=== PATIENT | female | born 1970 | race Caucasian/White ===

== ENCOUNTER → 2016-10-10 | Outpatient (CLI) | payer BC ==
[~2016-10-10] MED LIST: Iopamidol 755 MG/ML 500 ML Multipack Bottle IVPUSH STA
--- NOTE | 2016-10-10 12:42 | CT ---
CT of the abdomen and pelvis with and without contrast. HISTORY: Pain TECHNIQUE: Axial CT images were obtained of the abdomen and pelvis without and following the adminis tration of 100 mL of Isovue-370 left antecubital fossa. Coronal and sagittal reconstructions obtaine d. FINDINGS: The lung bases are clear, no pleural effusion. Breast implant noted. The liver, spleen, adrenal glands, and pancreas appear unremarkable for noncontrast examination. The gallbladder appears normal. There is no bulky retroperitoneal lymphadenopathy. No abdominal ascite s. There are no calcifications noted within the kidneys or along the courses of the ureters bilaterally . The large and small bowel are normal in caliber without evidence of obstruction. The appendix appear s normal. There is no bulky pelvic lymphadenopathy. No free fluid. No free air. The urinary bladder appears normal. The uterus and ovaries appear normal. The visualized osseous structures appear normal. IMPRESSION: No acute findings within the abdomen or pelvis.
== END ==
LOC: MW.DI 10:11
PROVIDERS: ATTEND Family Medicine
DX: R10.32 Left lower quadrant pain (principal); R93.5 Abnormal findings on diagnostic imaging of other abdominal regions, including retroperitoneum
CPT/HCPCS: 74178; Q9967

== ENCOUNTER 2017-10-12 06:27 | Day surgery (SDC) | payer BC ==
[~2017-10-12 06:27] MED LIST changes: -Iopamidol 755 MG/ML 500 ML Multipack Bottle IVPUSH STA; +Lactated Ringers 1,000 ML IV SCH; +Sodium Chloride 0.9% 10 ML Syringe FLUSH PRN; +Sodium Chloride 0.9% 2.5 ML Syringe FLUSH PRN
--- NOTE | 2017-10-12 07:19 | PCM.PREANE ---
Preanesthetic Assessment - Anesthesia/Transfusion/Family Hx Anesthesia History: Prior Anesthesia Without Reaction Family History of Anesthesia Reaction: No Transfusion History: No Prior Transfusion(s) Intubation History: Unknown - Review of Systems General: No Symptoms Pulmonary: No Symptoms Cardiovascular: No Symptoms Gastrointestinal: Abdominal Pain Neurological: No Symptoms Other: Reports: None - Physical Assessment NPO Status Date: 10/11/17 NPO Status Time: 22:00 O2 Sat by Pulse Oximetry: 95 Respiratory Rate: 16 Vital Signs: Last Vital Signs Temp 37.0 C 10/12/17 06:43 Pulse 73 10/12/17 06:43 Resp 16 10/12/17 06:43 BP 117/79 10/12/17 06:43 Pulse Ox 95 10/12/17 06:43 Height: 1.65 m Weight: 53.524 kg ASA Class: 2 Mental Status: Alert & Oriented x3 Dentition: Reports: Normal Dentition Thyro-Mental Finger Breadths: 3 Mouth Opening Finger Breadths: 3 ROM/Head Extension: Full Lungs: Clear to Auscultation, Normal Respiratory Effort Cardiovascular: Regular Rate, Regular Rhythm - Lab Values: Laboratory Last Values HCG, Qual NEGATIVE (NEG) 10/12/17 06:49 - Allergies Allergies/Adverse Reactions: Allergies Allergy/AdvReac Type Severity Reaction Status Date / Time No Known Allergies Allergy Verified 10/08/17 08:33 - Blood Blood Available: No - Anesthesia Plan Pre-Op Medication Ordered: None - Acknowledgements Anesthesia Type Planned: General Anesthesia Pt an Appropriate Candidate for the Planned Anesthesia: Yes Alternatives and Risks of Anesthesia Discussed w Pt/Guardian: Yes Pt/Guardian Understands and Agrees with Anesthesia Plan: Yes PreAnesthesia Questionnaire Genitourinary History: Reports: None Musculoskeletal History: Reports: Arthritis (knees, back), Back Pain, Chronic Oncologic (Cancer) History: Reports: Breast - Past Surgical History Head Surgeries/Procedures: Reports: None Female Surgical History: Reports: Breast Implant, Breast Reconstruction, Cervical Cryotherapy, Mastectomy Other Female Surgeries/Procedures: hx double mastectomy, breast augmentation prior to mastectomy, breast reconstruction following mastectomy - SUBSTANCE USE Smoking Status *Q: Current Every Day Smoker (1- 07/14) Tobacco Use Within Last Twelve Months: Cigarettes Recreational Drug Use History: No - HOME MEDS Home Medications: Home Meds Amitriptyline [Elavil] 25 mg PO BEDTIME 10/08/17 [History] Bone & Joint 1 tab PO DAILY 10/08/17 [History] Cetirizine HCl [Zyrtec] 10 mg PO DAILY 10/08/17 [History] Diclofenac Sodium [Voltaren] 1 tab PO ASDIRECTED PRN 10/08/17 [History] L.acidoph,Paracasei, B.lactis [Probiotic] 1 tab PO DAILY 10/08/17 [History] Meloxicam 15 mg PO DAILY 10/08/17 [History] Polyethylene Glycol 3350 [Miralax] 1 dose PO ASDIRECTED PRN 10/08/17 [History] Tamoxifen [Nolvadex] 20 mg PO DAILY 10/08/17 [History] medroxyPROGESTERone Acetate [Depo-Provera] 1 injection IM ASDIRECTED 10/08/17 [ History] - CURRENT (IN HOUSE) MEDS Current Meds: Current Medications Lactated Ringer's (Ringers, Lactated) 1,000 mls @ 125 mls/hr IV ASDIRECTED RICHIE Last Admin: 10/12/17 06:52 Dose: 125 mls/hr Sodium Chloride (Saline Flush) 10 ml FLUSH ASDIRECTED PRN PRN Reason: Keep Vein Open Sodium Chloride (Saline Flush) 2.5 ml FLUSH ASDIRECTED PRN PRN Reason: Keep Vein Open
[2017-10-12] MEDS ORDERED: Bupivacaine 0.25% 10 ML SDV ONE (07:20)
[2017-10-12] MEDS ORDERED: diphenhydrAMINE 50 MG/ML SDV ONE (07:24)
[2017-10-12] MEDS ORDERED: Dexamethasone 4 MG/ML 5 ML MDV ONE (07:24)
[2017-10-12] MEDS ORDERED: Ondansetron 4 MG/2 ML SDV ONE (07:24)
[2017-10-12] MEDS ORDERED: Lidocaine 2% 5 ML SDV ONE (07:24)
[2017-10-12] MEDS ORDERED: Rocuronium 10 MG/ML 10 ML Syringe ONE (07:24)
[2017-10-12] MEDS ORDERED: Midazolam 1 MG/ML 2 ML SDV ONE (07:25)
[2017-10-12] MEDS ORDERED: fentaNYL 250 MCG/5 ML SDV ONE (07:25)
[2017-10-12] MEDS ORDERED: Propofol 200 MG/20 ML SDV ONE (07:25)
[2017-10-12] MEDS ORDERED: Neostigmine Methylsulfate 1 MG/ML 5 ML Syringe ONE (08:30)
[2017-10-12] MEDS ORDERED: Glycopyrrolate 0.2 MG/ML SDV ONE (08:30)
--- NOTE | 2017-10-12 09:23 | PCM.POSTAN ---
POST ANESTHESIA ASSESSMENT - MENTAL STATUS Mental Status: Alert, Oriented - RESPIRATORY Respiratory Status: Respiratory Rate WNL, Airway Patent, O2 Saturation Stable - CARDIOVASCULAR CV Status: Pulse Rate WNL, Blood Pressure Stable - GASTROINTESTINAL GI Status: No Symptoms - PAIN Pain Score: 5 - POST OP HYDRATION Hydration Status: Adequate & Stable - OBSERVATIONS Free Text/Narrative:: no anesthesia problems
--- NOTE | 2017-10-12 09:25 | PCM.OPNOTE ---
- General Post-Op/Procedure Note Date of Surgery/Procedure: 10/12/17 Operative Procedure(s): Operative laparoscopy with bilateral ovarian biopsies, peritoneal biopsy, pelvic washings Findings: Normal appearing pelvis Pre Op Diagnosis: Left lower quadrant pelvic pain. Personal history of breast malignancy Post-Op Diagnosis: Same Anesthesia Technique: General LMA Primary Surgeon: Sara Gavin Pathology: bilateral ovarian biopsies left uterosacral peritoneal biopsy pelvic washings Fluid Replacement, Intraop: 1,000 EBL in mLs: 10 Complications: None known Condition: Good Free Text/Narrative:: Dictation [id number]
[2017-10-12 10:45] VITALS: BP 93/65
--- NOTE | 2017-10-12 10:46 | PCM48HPAN ---
Post Anesthesia Note - EVALUATION WITHIN 48HRS OF ANESTHETIC Vital Signs in Normal Range: Yes Patient Participated in Evaluation: Yes Respiratory Function Stable: Yes Airway Patent: Yes Cardiovascular Function Stable: Yes Hydration Status Stable: Yes Pain Control Satisfactory: Yes Nausea and Vomiting Control Satisfactory: Yes Mental Status Recovered: Yes Resp Rate: 15 - COMMENTS/OBSERVATIONS Free Text/Narrative:: no anesthesia problems
--- NOTE | 2017-10-12 16:23 | OR ---
SURGEON: Sara Gavin M.D. DATE OF PROCEDURE: 10/12/2017 PREOPERATIVE DIAGNOSES: 1. Left lower quadrant pelvic pain. 2. Personal history of breast cancer. POSTOPERATIVE DIAGNOSES: 1. Left lower quadrant pelvic pain. 2. Personal history of breast cancer. PROCEDURE: Operative laparoscopy with bilateral ovarian biopsies, peritoneal biopsy, and pelvic washings. ANESTHESIA: General LMA. FLUIDS: 1000 mL crystalloid. ESTIMATED BLOOD LOSS: Less than 10 mL. COMPLICATIONS: None. FINDINGS: Normal-appearing pelvis overall. Bilateral ovarian biopsies performed. Left uterosacral peritoneal biopsy, pelvic washings. DISPOSITION: The patient to PACU, stable. Specimens to pathology. PROCEDURE IN DETAIL: Hillary is a 47-year-old, perimenopausal female, who has had an acute onset left lower quadrant pelvic pain since July 2012. Imaging studies have been normal, but she continues to have pain. There is also some concern with her personal history of breast malignancy that there is something more going on. Despite efforts using warm heat, NSAIDs in time the pain is not improving. Therefore, we have discussed proceeding with laparoscopy to further evaluate the pelvis. The patient would like to proceed in this direction. Proper consent obtained. The patient was taken to the operating room, where she underwent general LMA in dorsal supine position, was placed in modified dorsal supine position. Prepped and draped in usual sterile fashion. SCDs to lower extremities. A time-out was performed. Speculum was introduced in the vagina. Uterine [place] manipulator gently placed. Speculum removed. Gloves were changed. Attention turned abdominally. Infraumbilically region was prepped with 0.25% Marcaine. Please see nurse's notes for total amount of local dispensed during the procedure. A 5-mm infraumbilical midline vaginal skin incision was created, anterior abdominal wall tented upward. A Veress needle gently introduced, saline hanging drop test was performed. Pneumoperitoneum was achieved. The Veress needle removed and 5-mm trocar introduced and laparoscope introduced. Peritoneal contents were identified. The uterus was mobile. The patient was placed in Trendelenburg positioning. Left lower quadrant trocar was placed under direct visualization after prepping the region with 0.25% Marcaine and creating a 5-mm skin incision. A right lower quadrant trocar was also placed after prepping the region with 0.25% Marcaine and creating 5 mm skin incision. The bilateral fallopian tubes, ovaries are visualized, appeared normal. The uterus easily mobile and no evidence of endometriosis or adhesive disease noted. Thorough pelvic washings were performed with normal saline, will be sent to Pathology for further analysis. Closely inspected peritoneal surfaces. No evidence of endometriosis. There was an acute inflammatory region over the left uterosacral ligament, feels as more normal variant but biopsy was performed of this peritoneum. The left ovary followed by the right ovary are biopsied and specimen sent to Pathology for analysis. The liver edge was inspected as well as the appendix appeared normal. Photographs were taken. The pelvis copiously irrigated, suction dried. The pneumoperitoneum was released. The left lower quadrant trocars removed under direct visualization followed by right lower quadrant trocar being removed. The laparoscope was removed followed by the infraumbilical trocar after releasing as much of the pneumoperitoneum as possible. The skin edges were reapproximated using 4-0 Monocryl in subcuticular fashion. Sponge, needle, and instrument count was correct. The attention was now turned vaginally. The [place] uterine manipulator gently removed, speculum was introduced. Cervix was inspected and found to be hemostatic. Sponge, instrument, needle count was correct x2 again. The patient has tolerated the procedure well overall. She will go to PACU in stable condition. Specimens to pathology. ADDISON / ALEXANDER /[id number]
== END 2017-10-12 10:40 | disposition home or self-care (01) ==
LOC: MW.SDS 06:27
PROVIDERS: ATTEND Obstetrics & Gynecology
DX: N83.8 Other noninflammatory disorders of ovary, fallopian tube and broad ligament (principal); I10 Essential (primary) hypertension; Z79.899 Other long term (current) drug therapy; F17.210 Nicotine dependence, cigarettes, uncomplicated
CPT/HCPCS: 49321; 84703; 85027; J1100; J1200; J2250; J2405; J3010; J7120; 00840; 88305; J2704

== ENCOUNTER 2018-12-23 10:41 | Day surgery (SDC) | payer BC ==
[~2018-12-23 10:41] MED LIST changes: +Betamethasone Acetate/Betamethasone Sod Phosphate 30 MG/5 ML MDV ONE; +Iopamidol 200-M 10 ML vial ITHECAL ONE; -Lactated Ringers 1,000 ML IV SCH; +Lidocaine 2% 5 ML SDV ONE; +Ropivacaine 0.5% 5 MG/ML 30 ML SDV ONE; -Sodium Chloride 0.9% 10 ML Syringe FLUSH PRN; -Sodium Chloride 0.9% 2.5 ML Syringe FLUSH PRN
--- NOTE | 2018-12-23 20:12 | OR ---
SURGEON: Justina Lawson D.O. DATE OF PROCEDURE: 12/23/2018 PRIMARY SURGEON: Justina Lawson D.O. OPERATING ROOM STAFF PRESENT: 1. Ines Bejarano. 2. Daniel Gutierrez. 3. RT. Caroline WOUND CLASS: I. PREOPERATIVE DIAGNOSES: 1. Failed back surgery syndrome. 2. Lumbar radiculopathy. 3. Lumbard degenerative joint disease. POSTOPERATIVE DIAGNOSES: 1. Failed back surgery syndrome. 2. Lumbar radiculopathy. 3. Lumbard degenerative joint disease. PROCEDURE PERFORMED: 1. Caudal epidural steroid injection. 2. Fluoroscopic guidance for needle placement. 3. Local with oral Valium for sedation. SCREENING QUESTIONS: The patient answered "no" to all of the following questions: 1. Are you allergic to latex? 2. Do you have a bleeding disorder? 3. Do you have any current local or systemic infections? 4. Are you taking any anti-inflammatories or blood thinners? 5. Do you have any joint replacements, heart valve replacements, or a pacemaker? DESCRIPTION OF PROCEDURE: The patient had the procedure thoroughly explained including all possible risks, benefits and alternatives. Consent was signed in my clinic indicating understanding and willingness to proceed. The patient presented to [facility] and was escorted to the dressing room to disrobe and change into a hospital gown. Preoperative vital signs were taken and stable. The patient reported that Valium was taken prior to the procedure. The patient was brought back to the procedure room and placed in the prone position on the procedure room table. A pillow was placed under the hips in order to flatten the lumbar lordosis. The back was prepped with ChloraPrep and sterilely draped. All personnel in the operating room were dressed in appropriate attire including surgical scrubs, head and shoe covers. This was to ensure sterility while in the treatment room. During the time fluoroscopy was in use, all personnel in the operating room wore lead reddy with thyroid collars. Sterile technique was used throughout the procedure. The patient was awake and conversant throughout the procedure. There was no evidence of infection at the site of needle insertion. Skeletal landmarks were identified under fluoroscopy for the lumbar epidural. Skin was anesthetized with 2% lidocaine with a sterile 27-gauge 1.5 inch needle. Then a 20-gauge Tuohy epidural needle was placed in the epidural space with loss of resistance technique under fluoroscopic guidance. No heme, cerebrospinal fluid, or paresthesias were noted. Isovue-200 contrast dye was injected in 0.2 cubic centimeter increments and seen to outline the epidural space in both AP and lateral views. There was no intravascular flow pattern observed under live fluoroscopy. Then 12 milligrams of Celestone was slowly injected after negative aspiration. The patient tolerated the procedure well. Vital signs were stable during and after the procedure. The staff escorted the patient to the recovery area and the patient was released in stable condition after a brief stay in the recovery room monitored by the nurse. The patient was given both oral and written discharge and follow up instructions with recommendation to follow up given for 2-3 weeks. The patient voiced understanding including understanding of those signs and symptoms that would require emergency care. The patient knows how to contact the office if there are any additional problems or questions in the meantime. PREOPERATIVE PAIN: 8/10. POSTOPERATIVE PAIN: 0/10. FOLLOWUP: In the Pain Clinic in 3 weeks. KAITLYNN / ALEXANDER /[id number]
== END 2018-12-23 13:03 | disposition home or self-care (01) ==
LOC: MW.SDS 10:41
PROVIDERS: ATTEND Anesthesiology
DX: M96.1 Postlaminectomy syndrome, not elsewhere classified (principal); M47.26 Other spondylosis with radiculopathy, lumbar region; M79.18 Myalgia, other site; M17.11 Unilateral primary osteoarthritis, right knee; I10 Essential (primary) hypertension; F17.210 Nicotine dependence, cigarettes, uncomplicated; Z85.3 Personal history of malignant neoplasm of breast; Z98.890 Other specified postprocedural states
CPT/HCPCS: 62323; J0702; J2795; Q9966; J2001

== ENCOUNTER 2019-06-20 16:03 | Emergency (ER) | payer BC ==
[2019-06-20 16:36] VITALS: BP 145/97; PULSE 108
[2019-06-20] MEDS ORDERED: Ketorolac 60 MG/2 ML SDV IM ONE (17:01)
--- NOTE | 2019-06-20 17:10 | EDM.PDOC ---
ED HPI GENERAL MEDICAL PROBLEM - General Chief Complaint: Back Pain or Injury Stated Complaint: RIGHT LEG PAIN Time Seen by Provider: 06/20/19 16:16 Source of Information: Reports: Patient History Limitations: Reports: No Limitations - History of Present Illness INITIAL COMMENTS - FREE TEXT/NARRATIVE: HISTORY AND PHYSICAL: History of present illness: Patient is a 49-year-old female who presents to the ED today with concern of right leg pain that has been going on over the past several months. Patient states she has seen a community living specialist, orthopedic provider, and primary care provider. Patient states that she has had multiple imaging modalities over the past several months including the MRI, thoracic spine MRI, extremity ultrasound (on our file) and states she also had a pelvic MRI and recent steroid injections for bursitis of the right hip at [facility] with Dr. Shafer. Patient states she also has scheduled out a few more steroid injections over the next week to [address] [facility] for her leg pain. Patient states she will also have a right knee surgery coming up in the next several weeks with an orthopedic provider for meniscus injuries. Patient denies any new trauma , fall, or injury to the leg. Patient denies any other symptoms or concerns. Patient denies loss or retention of bowel and bladder function or saddle anesthesia. Patient denies fever, chills, chest pain, shortness of breath, or cough. Denies headache, neck stiff ness, change in vision, syncope, or near syncope. Denies nausea, vomiting, abdominal pain, diarrhea, constipation, or dysuria. Has not noted any blood in urine or stool. Patient has been eating and drinking appropriately. Review of systems: As per history of present illness and below otherwise all systems reviewed and negative. Past medical history: As per history of present illness and as reviewed below otherwise noncontributory. Surgical history: As per history of present illness and as reviewed below otherwise noncontributory. Social history: See social history for further information Family history: As per history of present illness and as reviewed below otherwise noncontributory. Physical exam: General: Patient is alert, oriented, and in no acute distress. Patient laying on exam table but tearful throughout exam. HEENT: Atraumatic, normocephalic, pupils equal and reactive bilaterally, negative for conjunctival pallor or scleral icterus, mucous membranes moist, TMs normal bilaterally, throat clear, neck supple, nontender, trachea midline. No drooling or trismus noted. No meningeal signs. No hot potato voice noted. Lungs: Clear to auscultation, breath sounds equal bilaterally, chest nontender. Heart: S1S2, regular rate and rhythm without overt murmur Abdomen: Soft, nondistended, nontender. Negative for masses or hepatosplenomegaly. Negative for costovertebral tenderness. Pelvis: Stable nontender. Genitourinary: Deferred. Rectal: Deferred. Skin: Intact, warm, dry. No lesions or rashes noted. Extremities: Atraumatic, negative for cords or calf pain. Neurovascular unremarkable. No obvious deformity of complete bilateral lower extremities. Negative pain to palpation of complete bilateral lower extremities. Patient does have full range of motion of complete bilateral lower extremities. Dorsalis pedis and posterior tibial pulses are grossly intact bilaterally with capillary refill less than 2 seconds. Patient does point to her posterior mid femur area when relation to her discomfort but negative pain with palpation of this area and no obvious deformity, mass, or lesions noted of this area. Neuro: Awake, alert, oriented. Cranial nerves II through XII unremarkable. Cerebellum unremarkable. Motor and sensory unremarkable throughout. Exam nonfocal. Notes: Dr. Painter verbally involved in patient care. Discussed the importance for follow-up with her primary care provider and orthopedic provider as she has scheduled. Voices understanding and is agreeable to plan of care. Denies any further questions or concerns at this time. Diagnostics: Femur XR Therapeutics: Toradol, Norflex Prescription: None Impression: Right leg pain, chronic Plan: 1. Rest, ice, elevate the affected extremity. You can apply ice and or heat 15 minutes on, 15 minutes off. 2. Tylenol and/or Ibuprofen as directed for pain management or discomfort. 3. Follow up with the Orthopedic provider and primary care provider as scheduled and as discussed. Return to the ED as needed and as discussed. Definitive disposition and diagnosis as appropriate pending reevaluation and review of above. Right Leg Pain Score (Numeric/FACES): 10 - Related Data Allergies Allergy/AdvReac Type Severity Reaction Status Date / Time No Known Allergies Allergy Verified 06/20/19 16:36 Home Meds: Home Meds Bone & Joint 1 tab PO DAILY 10/08/17 [History] Polyethylene Glycol 3350 [Miralax] 1 dose PO ASDIRECTED PRN 10/08/17 [History] Tamoxifen [Nolvadex] 20 mg PO DAILY 10/08/17 [History] medroxyPROGESTERone Acetate [Depo-Provera] 1 injection IM ASDIRECTED 10/08/17 [ History] Pregabalin 150 mg PO DAILY 06/20/19 [History] oxyCODONE HCl/Acetaminophen [Endocet 7.5-325 mg Tablet] 1 each PO BID 06/20/19 [ History] tiZANidine [Zanaflex] 4 mg PO BID 06/20/19 [History] Past Medical History HEENT History: Reports: None Cardiovascular History: Reports: None Respiratory History: Reports: None Gastrointestinal History: Reports: None Genitourinary History: Reports: None APPLICATION DEVELOPMENT LIAISON History: Reports: None Musculoskeletal History: Reports: Arthritis, Back Pain, Chronic, Other (See Below) Other Musculoskeletal History: Chronic R Leg pain Neurological History: Reports: None Psychiatric History: Reports: None Endocrine/Metabolic History: Reports: None Hematologic History: Reports: None Immunologic History: Reports: None Oncologic (Cancer) History: Reports: Breast Dermatologic History: Reports: None - Infectious Disease History Infectious Disease History: Reports: Chicken Pox - Past Surgical History Head Surgeries/Procedures: Reports: None Female Surgical History: Reports: Breast Implant, Breast Reconstruction, Cervical Cryotherapy, Mastectomy Other Female Surgeries/Procedures: hx double mastectomy, breast augmentation prior to mastectomy, breast reconstruction following mastectomy Oncologic Surgical History: Reports: Biopsy of Breast, Mastectomy Social & Family History - Tobacco Use Smoking Status *Q: Former Smoker Used Tobacco, but Quit: Yes Month/Year Tobacco Last Used: 2017 - Recreational Drug Use Recreational Drug Use: No ED ROS GENERAL - Review of Systems Review Of Systems: Comprehensive ROS is negative, except as noted in HPI. ED EXAM, GENERAL - Physical Exam Exam: See Below (see dictation) Course - Vital Signs Last Recorded V/S: Last Vital Signs Temp 97.9 F 06/20/19 16:33 Pulse 108 H 06/20/19 16:33 Resp 22 H 06/20/19 16:33 BP 145/97 H 06/20/19 16:33 Pulse Ox 95 06/20/19 16:33 - Orders/Labs/Meds Meds: Medications Discontinued Medications Generic Name Dose Route Start Last Admin Trade Name Freq PRN Reason Stop Dose Admin Ketorolac Tromethamine 60 mg 06/20/19 17:01 06/20/19 17:18 Toradol IM 06/20/19 17:02 60 mg ONETIME ONE Administration Orphenadrine Citrate 60 mg 06/20/19 17:01 06/20/19 17:18 Norflex IM 06/20/19 17:02 60 mg ONETIME ONE Administration Departure - Departure Time of Disposition: 18:11 Disposition: Home, Self-Care 01 Clinical Impression: Right leg pain - Discharge Information Instructions: Pain Without a Known Cause Referrals: Swapnil Joe MD [Primary Care Provider] - Forms: ED Department Discharge Additional Instructions: The following information is given to patients seen in the emergency department who are being discharged to home. This information is to outline your options for follow-up care. We provide all patients seen in our emergency department with a follow-up referral. The need for follow-up, as well as the timing and circumstances, are variable depending upon the specifics of your emergency department visit. If you don't have a primary care physician on staff, we will provide you with a referral. We always advise you to contact your personal physician following an emergency department visit to inform them of the circumstance of the visit and for follow-up with them and/or the need for any referrals to a consulting specialist. The emergency department will also refer you to a specialist when appropriate. This referral assures that you have the opportunity for follow-up care with a specialist. All of these measure are taken in an effort to provide you with optimal care, which includes your follow-up. Under all circumstances we always encourage you to contact your private physician who remains a resource for coordinating your care. When calling for follow-up care, please make the office aware that this follow-up is from your recent emergency room visit. If for any reason you are refused follow-up, please contact the [facility] at and asked to speak to the emergency department charge nurse. [facility] [address] [place] [id number] [id number] [facility] [address], [address] [place] [address] 1. Rest, ice, elevate the affected extremity. You can apply ice and or heat 15 minutes on, 15 minutes off. 2. Tylenol and/or Ibuprofen as directed for pain management or discomfort. 3. Follow up with the Orthopedic provider and primary care provider as scheduled and as discussed. Return to the ED as needed and as discussed.
--- NOTE | 2019-06-20 18:10 | CR ---
Indication: Pain. Technique: Two views of right femur. Comparison: None Findings: The femoral head is seated within the acetabulum. No fracture or subluxation is identified. Postoperative changes of the lower lumbar spine are identified. Impression: No acute fracture. Dictated by Erinn Gonzalez MD @ Jun 20 2019 6:07PM Signed by Dr. Erinn Gonzalez @ Jun 20 2019 6:08PM
== END 2019-06-20 18:22 | disposition home or self-care (01) ==
LOC: MW.ED 16:03
DX: M79.661 Pain in right lower leg (principal); G89.29 Other chronic pain; Z87.890 Personal history of sex reassignment
CPT/HCPCS: 73552; 96372; 99283; J1885; J2360

== ENCOUNTER 2024-04-13 12:38 | Emergency (ER) | payer MEDICARE, BC ==
[2024-04-13 12:56] LABS: HEMATOCRIT 38.8 % (37.0-47.0); HEMOGLOBIN 13.5 g/dL (12.0-16.0); MEAN CORPUSCULAR HEMOGLOBIN 30.3 pg (28.0-32.0); MEAN CORPUSCULAR HGB CONC 34.8 g/dL (32.0-36.0); MEAN CORPUSCULAR VOLUME 87.2 fL (83.0-99.0); MEAN PLATELET VOLUME 9.3 fL (9.4-12.3); PLATELET COUNT,PLT 377 K/uL (150-400); RED BLOOD CELL COUNT 4.45 M/uL (4.10-5.30); WHITE BLOOD CELL COUNT,WBC 18.33 K/uL (3.9-11.3)
[2024-04-13] MEDS: Famotidine 20 MG/2 ML SDV IVPUSH ONE (13:09)
[2024-04-13] MEDS: Morphine 4 MG/ML Syringe IVPUSH ONE ×2 (13:09→14:31)
[2024-04-13] MEDS: Sodium Chloride 0.9% 1,000 ML IV ONE ×3 (13:09→16:29)
[2024-04-13] MEDS: Ondansetron 4 MG/2 ML SDV IVPUSH ONE (13:09)
[2024-04-13 13:28] LABS: SEG NEUTROPHILS ABSOLUTE MAN 15.03 K/uL (1.80-7.70); SEG NEUTROPHILS PERCENT MAN 82 % (41-71)
[2024-04-13 13:29] LABS: BAND PERCENT MAN 6 %; LYMPHOCYTES ABSOLUTE MAN 1.47 K/uL (1.00-4.80); LYMPHOCYTES PERCENT MAN 8 % (24-44); MONOCYTES ABSOLUTE MAN 0.73 K/uL (0.00-0.80); MONOCYTES PERCENT MAN 4 % (0-8)
[2024-04-13 13:40] LABS: A/G RATIO 1.7 (0.9-1.6); ALANINE AMINOTRANSFERASE,ALT 81 IU/L (14-63); ALBUMIN 5.7 g/dL (3.4-5.0); ALKALINE PHOSPHATASE 61 U/L (46-116); ASPARTATE AMNIOTRANSFERASE,AST 62 IU/L (15-37); BILIRUBIN TOTAL 0.9 mg/dL (0.2-1.0); BLOOD UREA NITROGEN,BUN 25 mg/dL (7.0-18.0); CALCIUM 11.6 mg/dL (8.5-10.1); CARBON DIOXIDE,CO2 20.2 mmol/L (21.0-32.0); CHLORIDE,CL 89 mmol/L (98-107); CREATININE 1.7 mg/dL (0.6-1.0); GLUCOSE RANDOM 194 mg/dL (74-106); LIPASE 23 U/L (16-77); POTASSIUM,K 4.3 mmol/L (3.5-5.1); PROTEIN TOTAL,TP 9.1 g/dL (6.4-8.2); SODIUM,NA 130 mmol/L (136-145)
[2024-04-13 13:46] LABS: ESTIMATED GFR 36 mL/min (>60)
[2024-04-13] MEDS: droPERidol 5 MG/2 ML SDV IVPUSH ONE (14:31)
[2024-04-13 17:48] VITALS: BP 111/67; PULSE 85
== END 2024-04-13 17:47 | disposition home or self-care (01) ==
LOC: MW.ED 12:38
DX: R10.13 Epigastric pain (principal); Z79.899 Other long term (current) drug therapy; Z75.8 Other problems related to medical facilities and other health care
CPT/HCPCS: 36415; 74176; 80053; 83690; 84703; 85025; 96361; 96374; 96375; 96376; 99284; J1790; J2270; J2405; J3490; J7030

== ENCOUNTER 2024-04-16 07:10 | Observation (INO) | payer MEDICARE, BC ==
[2024-04-16] MEDS: Sodium Chloride 0.9% 10 ML Syringe FLUSH PRN (07:23)
[2024-04-16] MEDS: Sodium Chloride 0.9% 2.5 ML Syringe FLUSH PRN (07:23)
[2024-04-16] MEDS: Morphine 4 MG/ML Syringe IVPUSH ONE (07:25)
[2024-04-16] MEDS: Famotidine 20 MG/2 ML SDV IVPUSH ONE (07:25)
[2024-04-16] MEDS: droPERidol 5 MG/2 ML SDV IVPUSH ONE ×2 (07:25→08:02)
[2024-04-16] MEDS: Sodium Chloride 0.9% 1,000 ML IV ONE (07:26)
[2024-04-16 07:30] LABS: BASOPHILS ABSOLUTE AUTO 0.03 K/uL (0.00-0.20); BASOPHILS PERCENT AUTO 0.4 % (0.0-1.0); EOSINOPHILS ABSOLUTE AUTO 0.19 K/uL (0.00-0.45); EOSINOPHILS PERCENT AUTO 2.4 % (0.0-6.0); HEMATOCRIT 34.3 % (37.0-47.0); HEMOGLOBIN 11.5 g/dL (12.0-16.0); IMMATURE GRAN ABSOLUTE AUTO 0.01 K/uL (0.00-0.05); IMMATURE GRAN PERCENT AUTO 0.1 % (0.0-0.4); LYMPHOCYTES ABSOLUTE AUTO 2.22 K/uL (1.00-4.80); LYMPHOCYTES PERCENT AUTO 27.9 % (24.0-44.0); MEAN CORPUSCULAR HEMOGLOBIN 30.3 pg (28.0-32.0); MEAN CORPUSCULAR HGB CONC 33.5 g/dL (32.0-36.0); MEAN CORPUSCULAR VOLUME 90.5 fL (83.0-99.0); MEAN PLATELET VOLUME 9.4 fL (9.4-12.3); MONOCYTES PERCENT AUTO 12.6 % (0.0-8.0); NEUTROPHILS PERCENT AUTO 56.6 % (41.0-71.0); PLATELET COUNT,PLT 279 K/uL (150-400); RED BLOOD CELL COUNT 3.79 M/uL (4.10-5.30); WHITE BLOOD CELL COUNT,WBC 7.95 K/uL (3.9-11.3)
[2024-04-16 07:52] LABS: A/G RATIO 1.4 (0.9-1.6); ALANINE AMINOTRANSFERASE,ALT 48 IU/L (14-63); ALBUMIN 4.1 g/dL (3.4-5.0); ALKALINE PHOSPHATASE 45 U/L (46-116); ASPARTATE AMNIOTRANSFERASE,AST 36 IU/L (15-37); BILIRUBIN TOTAL 0.5 mg/dL (0.2-1.0); BLOOD UREA NITROGEN,BUN 15 mg/dL (7.0-18.0); CALCIUM 9.6 mg/dL (8.5-10.1); CARBON DIOXIDE,CO2 25.6 mmol/L (21.0-32.0); CHLORIDE,CL 95 mmol/L (98-107); GLUCOSE RANDOM 110 mg/dL (74-106); LIPASE 34 U/L (16-77); MAGNESIUM 1.5 mg/dL (1.8-2.4); POTASSIUM,K 3.2 mmol/L (3.5-5.1); PROTEIN TOTAL,TP 7.1 g/dL (6.4-8.2); SODIUM,NA 133 mmol/L (136-145)
[2024-04-16 08:00] LABS: ESTIMATED GFR 67 mL/min (>60); ETHANOL BLOOD MEDICAL < 3.0 mg/dL
[2024-04-16] MEDS: Ondansetron 4 MG/2 ML SDV IVPUSH ONE (08:02)
[2024-04-16 08:04] LABS: APPEARANCE,URINE CLEAR; BILIRUBIN,URINE NEGATIVE (NEGATIVE); COLOR,URINE YELLOW; GLUCOSE,URINE NEGATIVE (NEGATIVE); KETONES,URINE 15 mg/dL (NEGATIVE); LEUKOCYTE ESTERASE,URINE NEGATIVE (NEGATIVE); NITRITE,URINE NEGATIVE (NEGATIVE); OCCULT BLOOD,URINE NEGATIVE (NEGATIVE); PROTEIN,URINE NEGATIVE (NEGATIVE); UROBILINOGEN,URINE 0.2 EU/dL (<2.0)
[2024-04-16 08:14] LABS: AMPHETAMINES SCREEN, URINE NEGATIVE (CUTOFF=500); BARBITURATE SCREEN,URINE NEGATIVE (CUTOFF=200); BENZODIAZEPINES SCREEN,URINE NEGATIVE (CUTOFF=150); BUPRENORPHINE SCREEN,URINE NEGATIVE (CUTOFF=10); METHADONE SCREEN, URINE NEGATIVE (CUTOFF=200); METHAMPHETAMINES SCREEN, URINE NEGATIVE (CUTOFF=500); OXYCODONE SCREEN,URINE NEGATIVE (CUT0FF=100); PCP SCREEN,URINE NEGATIVE (CUTOFF=25); THC SCREEN,URINE 20 NG/ML PRESUMPTIVE POSITIVE (CUTOFF=50)
[2024-04-16] MEDS: Prochlorperazine 10 MG/2 ML SDV IVPUSH ONE (08:22)
[2024-04-16] MEDS: Iopamidol 755 Mg/ML 100 ML Bottle IVPUSH ONE (08:47)
[2024-04-16 09:08] LABS: CORONAVIRUS COVID-19 NAA NEGATIVE (NEGATIVE); INFLUENZA A NAA NEGATIVE (NEGATIVE); INFLUENZA B NAA NEGATIVE (NEGATIVE); RESPIRATORY SYNCYTIAL VIR NAA NEGATIVE (NEGATIVE)
[2024-04-16] MEDS: Metoclopramide 10 MG/2 ML SDV IVPUSH ONE (09:43)
[2024-04-16] MEDS: cefTRIAXone 1 GM in Sodium Chloride 0.9% 50 ML IV ONE (10:34)
[2024-04-16] MEDS ORDERED: Acetaminophen 325 MG Tab PO PRN (11:46)
[2024-04-16] MEDS: Sodium Chloride 0.9% 1,000 ML IV SCH (14:33)
[2024-04-16] MEDS: Pantoprazole 40 MG Tab.CR PO SCH (14:33)
[2024-04-16] MEDS: Sucralfate 1 GM Tab PO SCH ×2 (14:33→23:32)
[2024-04-16] MEDS: Ondansetron 4 MG/2 ML SDV IVPUSH PRN (14:33)
[2024-04-16 16:22] LABS: CALCIUM 8.9 mg/dL (8.5-10.1); CARBON DIOXIDE,CO2 29.4 mmol/L (21.0-32.0); CREATININE 0.8 mg/dL (0.6-1.0); EST CRCL DRUG DOSING (CG) 57.94 mL/min; POTASSIUM,K 3.5 mmol/L (3.5-5.1)
[2024-04-16] MEDS: Acetaminophen/HYDROcodone 325-10 MG Tab PO PRN (17:03)
[2024-04-16] MEDS: Sucralfate 1 GM Tab PO ONE (19:19)
[2024-04-16] MEDS: Magnesium Sulfate/Water Premix 2 GM in Premix Bag 1 BAG IV ONE (20:20)
[2024-04-16] MEDS: traZODone 50 MG Tab PO SCH (20:56)
[2024-04-16] MEDS: droPERidol 5 MG/2 ML SDV IVPUSH PRN (23:59)
[2024-04-17 06:18] LABS: BASOPHILS ABSOLUTE AUTO 0.02 K/uL (0.00-0.20); BASOPHILS PERCENT AUTO 0.1 % (0.0-1.0); EOSINOPHILS ABSOLUTE AUTO 0.01 K/uL (0.00-0.45); EOSINOPHILS PERCENT AUTO 0.1 % (0.0-6.0); HEMATOCRIT 36.3 % (37.0-47.0); HEMOGLOBIN 12.3 g/dL (12.0-16.0); IMMATURE GRAN ABSOLUTE AUTO 0.06 K/uL (0.00-0.05); IMMATURE GRAN PERCENT AUTO 0.4 % (0.0-0.4); LYMPHOCYTES ABSOLUTE AUTO 1.33 K/uL (1.00-4.80); LYMPHOCYTES PERCENT AUTO 9.3 % (24.0-44.0); MEAN CORPUSCULAR HEMOGLOBIN 29.7 pg (28.0-32.0); MEAN CORPUSCULAR HGB CONC 33.9 g/dL (32.0-36.0); MEAN CORPUSCULAR VOLUME 87.7 fL (83.0-99.0); MEAN PLATELET VOLUME 9.5 fL (9.4-12.3); MONOCYTES ABSOLUTE AUTO 1.41 K/uL (0.00-0.80); MONOCYTES PERCENT AUTO 9.8 % (0.0-8.0); NEUTROPHILS ABSOLUTE AUTO 11.54 K/uL (1.80-7.70); NEUTROPHILS PERCENT AUTO 80.3 % (41.0-71.0); PLATELET COUNT,PLT 294 K/uL (150-400); RED BLOOD CELL COUNT 4.14 M/uL (4.10-5.30); WHITE BLOOD CELL COUNT,WBC 14.37 K/uL (3.9-11.3)
[2024-04-17 06:45] LABS: A/G RATIO 1.2 (0.9-1.6); ALBUMIN 3.8 g/dL (3.4-5.0); BILIRUBIN TOTAL 0.6 mg/dL (0.2-1.0); CALCIUM 8.9 mg/dL (8.5-10.1); CARBON DIOXIDE,CO2 26.2 mmol/L (21.0-32.0); CREATININE 0.7 mg/dL (0.6-1.0); EST CRCL DRUG DOSING (CG) 66.22 mL/min; MAGNESIUM 1.8 mg/dL (1.8-2.4); POTASSIUM,K 3.2 mmol/L (3.5-5.1); PROTEIN TOTAL,TP 6.9 g/dL (6.4-8.2)
[2024-04-17] MEDS: Potassium Chloride 20 MEQ Tab.ER PO ONE (09:12)
[2024-04-17] MEDS: cefTRIAXone 1 GM in Sodium Chloride 0.9% 50 ML IV SCH (10:24)
[2024-04-17 11:06] VITALS: BP 106/81; PULSE 106
== END 2024-04-17 12:40 | disposition home or self-care (01) ==
LOC: MW.ED 07:10 → MW.MS 11:24
PROVIDERS: ADMIT Family Medicine; ATTEND Family Medicine
DX: E86.0 Dehydration (principal); R11.2 Nausea with vomiting, unspecified; E87.1 Hypo-osmolality and hyponatremia
CPT/HCPCS: 0241U; 36415; 70450; 71260; 76705; 80048; 80053; 80305; 80307; 81003; 83690; 83735; 85025; 96361; 96365; 96366; 96367; 96375; 96376; 99285; A9270; G0378; J0696; J0780; J1790; J2270; J2405; J2765; J3475; J3490; J7030; Q9967; 99284

== ENCOUNTER 2024-10-07 10:56 | Emergency (ER) | payer MEDICARE, BC ==
[2024-10-07] MEDS: Sodium Chloride 0.9% 1,000 ML IV ONE (12:23)
[2024-10-07 12:25] LABS: BASOPHILS ABSOLUTE AUTO 0.05 K/uL (0.00-0.20); BASOPHILS PERCENT AUTO 0.7 % (0.0-1.0); EOSINOPHILS ABSOLUTE AUTO 0.19 K/uL (0.00-0.45); EOSINOPHILS PERCENT AUTO 2.7 % (0.0-6.0); HEMATOCRIT 37.8 % (37.0-47.0); HEMOGLOBIN 12.8 g/dL (12.0-16.0); IMMATURE GRAN ABSOLUTE AUTO 0.01 K/uL (0.00-0.05); IMMATURE GRAN PERCENT AUTO 0.1 % (0.0-0.4); LYMPHOCYTES ABSOLUTE AUTO 1.96 K/uL (1.00-4.80); LYMPHOCYTES PERCENT AUTO 28.2 % (24.0-44.0); MEAN CORPUSCULAR HEMOGLOBIN 31.3 pg (28.0-32.0); MEAN CORPUSCULAR HGB CONC 33.9 g/dL (32.0-36.0); MEAN CORPUSCULAR VOLUME 92.4 fL (83.0-99.0); MEAN PLATELET VOLUME 8.9 fL (9.4-12.3); MONOCYTES ABSOLUTE AUTO 0.77 K/uL (0.00-0.80); MONOCYTES PERCENT AUTO 11.1 % (0.0-8.0); NEUTROPHILS ABSOLUTE AUTO 3.98 K/uL (1.80-7.70); NEUTROPHILS PERCENT AUTO 57.2 % (41.0-71.0); PLATELET COUNT,PLT 298 K/uL (150-400); RED BLOOD CELL COUNT 4.09 M/uL (4.10-5.30); WHITE BLOOD CELL COUNT,WBC 6.96 K/uL (3.9-11.3)
[2024-10-07 12:52] LABS: A/G RATIO 1.5 (0.9-1.6); ALBUMIN 4.7 g/dL (3.4-5.0); BILIRUBIN TOTAL 0.4 mg/dL (0.2-1.0); CALCIUM 9.5 mg/dL (8.5-10.1); CARBON DIOXIDE,CO2 29.1 mmol/L (21.0-32.0); CREATININE 0.9 mg/dL (0.6-1.0); EST CRCL DRUG DOSING (CG) 53.22 mL/min; POTASSIUM,K 4.6 mmol/L (3.5-5.1); PROTEIN TOTAL,TP 7.8 g/dL (6.4-8.2)
[2024-10-07 13:40] VITALS: BP 159/88; PULSE 66
== END 2024-10-07 13:40 | disposition home or self-care (01) ==
LOC: MW.ED 10:56
DX: B71.9 Cestode infection, unspecified (principal); Z79.899 Other long term (current) drug therapy; Z75.8 Other problems related to medical facilities and other health care
CPT/HCPCS: 36415; 80053; 85025; 96360; 99283; J7030

== ENCOUNTER 2025-05-12 02:16 | Observation (INO) | payer BC, MEDICARE ==
[2025-05-12] MEDS ORDERED: Sodium Chloride 0.9% 2.5 ML Syringe FLUSH PRN (02:19)
[2025-05-12] MEDS ORDERED: Sodium Chloride 0.9% 10 ML Syringe FLUSH PRN (02:19)
[2025-05-12 02:41] LABS: BASOPHILS ABSOLUTE AUTO 0.05 K/uL (0.00-0.20); BASOPHILS PERCENT AUTO 0.7 % (0.0-1.0); EOSINOPHILS ABSOLUTE AUTO 0.51 K/uL (0.00-0.45); EOSINOPHILS PERCENT AUTO 7.3 % (0.0-6.0); IMMATURE GRAN ABSOLUTE AUTO 0.02 K/uL (0.00-0.05); IMMATURE GRAN PERCENT AUTO 0.3 % (0.0-0.4); LYMPHOCYTES ABSOLUTE AUTO 2.37 K/uL (1.00-4.80); LYMPHOCYTES PERCENT AUTO 33.8 % (24.0-44.0); MEAN PLATELET VOLUME 8.5 fL (9.4-12.3); MONOCYTES ABSOLUTE AUTO 0.85 K/uL (0.00-0.80); MONOCYTES PERCENT AUTO 12.1 % (0.0-8.0); NEUTROPHILS ABSOLUTE AUTO 3.21 K/uL (1.80-7.70); NEUTROPHILS PERCENT AUTO 45.8 % (41.0-71.0); NRBC ABSOLUTE 0.00 K/uL (0.00-0.02); NRBC PERCENT 0.0 /100WBC (0.0-0.2); PLATELET COUNT,PLT 257 K/uL (150-400); RED BLOOD CELL COUNT 4.07 M/uL (4.10-5.30); WHITE BLOOD CELL COUNT,WBC 7.01 K/uL (3.9-11.3)
[2025-05-12 02:55] LABS: GLUCOSE,URINE NEGATIVE (NEGATIVE); OCCULT BLOOD,URINE NEGATIVE (NEGATIVE)
[2025-05-12 02:56] LABS: APPEARANCE,URINE SLT CLOUDY
[2025-05-12] MEDS: droPERidol 2.5 MG/ML SDV IVPUSH ONE (02:58)
[2025-05-12 03:09] LABS: A/G RATIO 1.6 (0.9-1.6); ALANINE AMINOTRANSFERASE,ALT 26.0 IU/L (14-63); ASPARTATE AMNIOTRANSFERASE,AST 23.0 IU/L (15-37); BILIRUBIN TOTAL 0.5 mg/dL (0.2-1.0); BLOOD UREA NITROGEN,BUN 11.0 mg/dL (7.0-18.0); CARBON DIOXIDE,CO2 26.2 mmol/L (21.0-32.0); CHLORIDE,CL 88.0 mmol/L (98-107); CREATININE 0.7 mg/dL (0.6-1.0); EST CRCL DRUG DOSING (CG) 70.34 mL/min; GLUCOSE RANDOM 90.0 mg/dL (74-106); POTASSIUM,K 4.0 mmol/L (3.5-5.1); PROTEIN TOTAL,TP 7.3 g/dL (6.4-8.2); SODIUM,NA 123.0 mmol/L (136-145)
[2025-05-12 03:10] LABS: ESTIMATED GFR 103.0 mL/min (>60)
[2025-05-12] MEDS: diphenhydrAMINE 50 MG/ML SDV IVPUSH ONE (03:54)
[2025-05-12] MEDS ORDERED: diphenhydrAMINE 50 MG/ML SDV IVPUSH ONE (04:12)
[2025-05-12 10:40] LABS: A/G RATIO 1.4 (0.9-1.6); ALANINE AMINOTRANSFERASE,ALT 23.0 IU/L (14-63); ASPARTATE AMNIOTRANSFERASE,AST 21.0 IU/L (15-37); BILIRUBIN TOTAL 0.6 mg/dL (0.2-1.0); BLOOD UREA NITROGEN,BUN 8.0 mg/dL (7.0-18.0); CARBON DIOXIDE,CO2 26.9 mmol/L (21.0-32.0); CHLORIDE,CL 96.0 mmol/L (98-107); CREATININE 0.6 mg/dL (0.6-1.0); EST CRCL DRUG DOSING (CG) 82.91 mL/min; GLUCOSE RANDOM 88.0 mg/dL (74-106); POTASSIUM,K 4.5 mmol/L (3.5-5.1); PROTEIN TOTAL,TP 6.8 g/dL (6.4-8.2); SODIUM,NA 130.0 mmol/L (136-145)
[2025-05-12 10:44] LABS: ESTIMATED GFR 107.0 mL/min (>60)
[2025-05-12] MEDS: Acetaminophen/HYDROcodone 325-10 MG Tab PO PRN (10:51)
[2025-05-12] MEDS ORDERED: Non-Formulary Medication 1 Each (Amylase/Lipase/Protease 1 CAP Cap.Cr) PO SCH (12:00)
[2025-05-12 17:34] VITALS: BP 145/72; PULSE 70
== END 2025-05-12 17:34 | disposition home or self-care (01) ==
LOC: MW.ED 02:16 → MW.MS 04:01
PROVIDERS: ADMIT Family Medicine; ATTEND Family Medicine
DX: R10.84 Generalized abdominal pain (principal); G89.29 Other chronic pain; M54.50 Low back pain, unspecified; E87.1 Hypo-osmolality and hyponatremia; K59.03 Drug induced constipation; T40.2X5A Adverse effect of other opioids, initial encounter; Z79.899 Other long term (current) drug therapy; Z87.891 Personal history of nicotine dependence
CPT/HCPCS: 36415; 74018; 74018-26; 80053; 81003; 83605; 83690; 85025; 96361; 96374; 96375; 99284; 99285-25; A9270-GY; G0378; J1200; J1790; J2270; J7030

== ENCOUNTER 2025-05-23 11:05 | Emergency (ER) | payer BC, MEDICARE ==
[2025-05-23] MEDS ORDERED: Sodium Chloride 0.9% 10 ML Syringe FLUSH PRN (11:10)
[2025-05-23] MEDS ORDERED: Sodium Chloride 0.9% 2.5 ML Syringe FLUSH PRN (11:10)
[2025-05-23 11:34] LABS: APPEARANCE,URINE CLEAR; GLUCOSE,URINE NEGATIVE (NEGATIVE); OCCULT BLOOD,URINE TRACE-INTACT (NEGATIVE)
[2025-05-23 11:48] LABS: EPITHELIAL CELLS,URINE RARE (NONE-FEW)
[2025-05-23 11:51] LABS: BASOPHILS ABSOLUTE AUTO 0.02 K/uL (0.00-0.20); BASOPHILS PERCENT AUTO 0.3 % (0.0-1.0); EOSINOPHILS ABSOLUTE AUTO 0.22 K/uL (0.00-0.45); EOSINOPHILS PERCENT AUTO 3.7 % (0.0-6.0); IMMATURE GRAN ABSOLUTE AUTO 0.02 K/uL (0.00-0.05); IMMATURE GRAN PERCENT AUTO 0.3 % (0.0-0.4); LYMPHOCYTES ABSOLUTE AUTO 1.28 K/uL (1.00-4.80); LYMPHOCYTES PERCENT AUTO 21.7 % (24.0-44.0); MEAN PLATELET VOLUME 8.7 fL (9.4-12.3); MONOCYTES ABSOLUTE AUTO 0.63 K/uL (0.00-0.80); MONOCYTES PERCENT AUTO 10.7 % (0.0-8.0); NEUTROPHILS ABSOLUTE AUTO 3.72 K/uL (1.80-7.70); NEUTROPHILS PERCENT AUTO 63.3 % (41.0-71.0); NRBC ABSOLUTE 0.00 K/uL (0.00-0.02); NRBC PERCENT 0.0 /100WBC (0.0-0.2); PLATELET COUNT,PLT 246 K/uL (150-400); RED BLOOD CELL COUNT 3.65 M/uL (4.10-5.30); WHITE BLOOD CELL COUNT,WBC 5.89 K/uL (3.9-11.3)
[2025-05-23 12:28] LABS: A/G RATIO 1.5 (0.9-1.6); ALANINE AMINOTRANSFERASE,ALT 23.0 IU/L (14-63); ASPARTATE AMNIOTRANSFERASE,AST 21.0 IU/L (15-37); BILIRUBIN TOTAL 0.4 mg/dL (0.2-1.0); BLOOD UREA NITROGEN,BUN 13.0 mg/dL (7.0-18.0); CARBON DIOXIDE,CO2 28.7 mmol/L (21.0-32.0); CHLORIDE,CL 87.0 mmol/L (98-107); CREATININE 0.7 mg/dL (0.6-1.0); EST CRCL DRUG DOSING (CG) 73.39 mL/min; GLUCOSE RANDOM 91.0 mg/dL (74-106); POTASSIUM,K 4.2 mmol/L (3.5-5.1); PROTEIN TOTAL,TP 7.1 g/dL (6.4-8.2); SODIUM,NA 122.0 mmol/L (136-145)
[2025-05-23 12:29] LABS: ESTIMATED GFR 103.0 mL/min (>60)
[2025-05-23] MEDS: Acetaminophen/HYDROcodone 325-10 MG Tab PO ONE (13:17)
[2025-05-23] MEDS: Ondansetron 4 MG/2 ML SDV IVPUSH ONE (13:26)
[2025-05-23 15:11] VITALS: BP 115/90; PULSE 88
== END 2025-05-23 15:09 | disposition home or self-care (01) ==
LOC: MW.ED 11:05
DX: E87.1 Hypo-osmolality and hyponatremia (principal); R79.89 Other specified abnormal findings of blood chemistry; T70.3XXA Caisson disease [decompression sickness], initial encounter; Z79.891 Long term (current) use of opiate analgesic; K21.9 Gastro-esophageal reflux disease without esophagitis; Z79.899 Other long term (current) drug therapy; X58.XXXA Exposure to other specified factors, initial encounter
CPT/HCPCS: 36415; 80053; 81001; 83735; 84295; 85025; 96361; 96374; 99283; A9270; J2405; J7030

== ENCOUNTER 2025-05-24 05:47 | Emergency (ER) | payer MEDICARE, BC ==
[2025-05-24 06:12] LABS: BASOPHILS ABSOLUTE AUTO 0.04 K/uL (0.00-0.20); BASOPHILS PERCENT AUTO 0.8 % (0.0-1.0); EOSINOPHILS ABSOLUTE AUTO 0.30 K/uL (0.00-0.45); EOSINOPHILS PERCENT AUTO 5.7 % (0.0-6.0); IMMATURE GRAN ABSOLUTE AUTO 0.01 K/uL (0.00-0.05); IMMATURE GRAN PERCENT AUTO 0.2 % (0.0-0.4); LYMPHOCYTES ABSOLUTE AUTO 1.06 K/uL (1.00-4.80); LYMPHOCYTES PERCENT AUTO 20.3 % (24.0-44.0); MEAN PLATELET VOLUME 8.5 fL (9.4-12.3); MONOCYTES ABSOLUTE AUTO 0.87 K/uL (0.00-0.80); MONOCYTES PERCENT AUTO 16.6 % (0.0-8.0); NEUTROPHILS ABSOLUTE AUTO 2.95 K/uL (1.80-7.70); NEUTROPHILS PERCENT AUTO 56.4 % (41.0-71.0); NRBC ABSOLUTE 0.00 K/uL (0.00-0.02); NRBC PERCENT 0.0 /100WBC (0.0-0.2); PLATELET COUNT,PLT 251 K/uL (150-400); RED BLOOD CELL COUNT 4.08 M/uL (4.10-5.30); WHITE BLOOD CELL COUNT,WBC 5.23 K/uL (3.9-11.3)
[2025-05-24 06:28] LABS: APPEARANCE,URINE CLEAR; GLUCOSE,URINE NEGATIVE (NEGATIVE); OCCULT BLOOD,URINE NEGATIVE (NEGATIVE)
[2025-05-24 06:34] LABS: A/G RATIO 1.4 (0.9-1.6); ALANINE AMINOTRANSFERASE,ALT 27.0 IU/L (14-63); ASPARTATE AMNIOTRANSFERASE,AST 21.0 IU/L (15-37); BILIRUBIN TOTAL 0.3 mg/dL (0.2-1.0); BLOOD UREA NITROGEN,BUN 12.0 mg/dL (7.0-18.0); CARBON DIOXIDE,CO2 26.9 mmol/L (21.0-32.0); CHLORIDE,CL 103.0 mmol/L (98-107); CREATININE 0.7 mg/dL (0.6-1.0); EST CRCL DRUG DOSING (CG) 69.62 mL/min; GLUCOSE RANDOM 87.0 mg/dL (74-106); POTASSIUM,K 4.3 mmol/L (3.5-5.1); PROTEIN TOTAL,TP 7.4 g/dL (6.4-8.2); SODIUM,NA 138.0 mmol/L (136-145)
[2025-05-24 06:37] LABS: ESTIMATED GFR 103.0 mL/min (>60)
[2025-05-24 06:37] LABS: AMPHETAMINES SCREEN, URINE NEGATIVE (CUTOFF=500); BUPRENORPHINE SCREEN,URINE NEGATIVE (CUTOFF=10); METHADONE SCREEN, URINE NEGATIVE (CUTOFF=200); METHAMPHETAMINES SCREEN, URINE NEGATIVE (CUTOFF=500); OXYCODONE SCREEN,URINE NEGATIVE (CUT0FF=100); PCP SCREEN,URINE NEGATIVE (CUTOFF=25); THC SCREEN,URINE 20 NG/ML PRESUMPTIVE POSITIVE (CUTOFF=50)
[2025-05-24 09:06] VITALS: BP 142/86; PULSE 82
== END 2025-05-24 09:06 | disposition home or self-care (01) ==
LOC: MW.ED 05:47
DX: E87.1 Hypo-osmolality and hyponatremia (principal); F12.90 Cannabis use, unspecified, uncomplicated; K21.9 Gastro-esophageal reflux disease without esophagitis; Z79.891 Long term (current) use of opiate analgesic; Z79.899 Other long term (current) drug therapy
CPT/HCPCS: 36415; 70450; 80053; 80305; 80307; 81003; 85025; 93005; 96360; 99284; A9270; J7030; 93010